=== PATIENT | female | born 2000 ===

== ENCOUNTER 2021-04-03 17:11 | Emergency (ER) | payer OTHER ==
[~2021-04-03] VITALS: Ht 162.6 cm; Wt 48.1 kg
[2021-04-03] MEDS ORDERED: ZITHROMAX500 MG PO (21:34)
[2021-04-03] MEDS ORDERED: INTESTINEX680 M1 PO (21:34)
== END 2021-04-03 21:59 | disposition home or self-care (01) ==
LOC: EMR PED 17:11
DX: A02.0 Salmonella enteritis (principal); A02.9 Salmonella infection, unspecified; Z03.818 Encounter for observation for suspected exposure to other biological agents ruled out